=== PATIENT | female | born 2000 | race Hispanic/Latino ===

== ENCOUNTER 2021-05-04 17:58 | Outpatient (CLI) | payer MEDICAID ==
--- NOTE | 2021-05-04 19:29 | Ultrasound Report ---
ULTRASOUND BIOPHYSICAL PROFILE INDICATION / CLINICAL INFORMATION: well being. COMPARISON: None available. FINDINGS: BREATHING MOVEMENT = 2 GROSS BODY MOVEMENT = 2 TONE = 2 QUALITATIVE AMNIOTIC FLUID VOLUME = 2 TOTAL BIOPHYSICAL SCORE = 12/26 PRESENTATION: Cephalic. HEART RATE (beats per minute): 142 IMPRESSION: 1. biophysical profile = 12/26 Signer Name: Yaya James MD Signed: 05/04/2021 7:24 PM Workstation Name: [id number]
[2021-05-04 19:39] VITALS: BP 131/69
== END 2021-05-04 20:30 | disposition home or self-care (01) ==
LOC: TRG 17:58 → APU 17:59 → TRG 20:30
PROVIDERS: ATTEND Obstetrics & Gynecology
DX: Z34.93 Encounter for supervision of normal pregnancy, unspecified, third trimester (principal); Z3A.37 37 weeks gestation of pregnancy
CPT/HCPCS: 59025; 76819

== ENCOUNTER 2021-05-12 17:30 | Outpatient (CLI) | payer MEDICAID ==
[2021-05-12 18:48] VITALS: BP 126/82
== END 2021-05-12 19:42 | disposition home or self-care (01) ==
LOC: TRG 17:30 → APU 17:31 → TRG 19:42
PROVIDERS: ATTEND Obstetrics & Gynecology
DX: Z34.93 Encounter for supervision of normal pregnancy, unspecified, third trimester (principal); Z3A.39 39 weeks gestation of pregnancy
CPT/HCPCS: 59025

== ENCOUNTER 2021-05-17 10:04 | Outpatient (CLI) | payer MEDICAID ==
--- NOTE | 2021-05-17 15:00 | Ultrasound Report ---
ULTRASOUND OBSTETRIC LIMITED ULTRASOUND BIOPHYSICAL PROFILE INDICATION / CLINICAL INFORMATION: edvin. Clinical Gestational Age (GA) in weeks, days: 39, 5 TECHNIQUE: Transabdominal. COMPARISON: None available. FINDINGS: BREATHING MOVEMENT = 2 GROSS BODY MOVEMENT = 2 TONE = 2 QUALITATIVE AMNIOTIC FLUID VOLUME = 2 TOTAL BIOPHYSICAL SCORE = 8/8 HEART RATE (beats per minute): 151 AMNIOTIC FLUID INDEX (cm) = 15.4 (normal = 7-24 cm). The largest pocket is quadrant 2 measuring 4. 6 cm. PRESENTATION: Cephalic. ADDITIONAL FINDINGS: None. IMPRESSION: 1. Biophysical Score = 8/8 . 2. Normal EDVIN measuring 15.4 cm. Signer Name: Chemo Jason MD Signed: 05/17/2021 2:57 PM Workstation Name: [id number]
== END 2021-05-17 12:59 | disposition left against medical advice (07) ==
LOC: TRG 10:04 → APU 10:05 → TRG 12:59
PROVIDERS: ATTEND Student in an Organized Health Care Education/Training Program
DX: Z34.93 Encounter for supervision of normal pregnancy, unspecified, third trimester (principal); Z3A.39 39 weeks gestation of pregnancy
CPT/HCPCS: 36415; 76815; 76819; 84112